=== PATIENT | female | born 1980 | race Caucasian/White ===

== ENCOUNTER → 2017-11-01 | Outpatient (CLI) | payer OTHER ==
[~2017-11-01] MED LIST: COLA100C OR; METH-703 PO; OXYC-360 PO; PREN0.01 PO
== END ==
LOC: HPND 09:26
PROVIDERS: ATTEND Obstetrics & Gynecology
DX: O09.521 Supervision of elderly multigravida, first trimester (principal); O99.111 Other diseases of the blood and blood-forming organs and certain disorders involving the immune mechanism complicating pregnancy, first trimester; D69.6 Thrombocytopenia, unspecified
CPT/HCPCS: 36415; 76813

== ENCOUNTER → 2017-12-27 | Outpatient (CLI) | payer OTHER | LOC: HPND 08:30 | PROVIDERS: ATTEND Obstetrics & Gynecology | DX: O09.522 Supervision of elderly multigravida, second trimester (principal); O34.211 Maternal care for low transverse scar from previous cesarean delivery; D69.6 Thrombocytopenia, unspecified | CPT/HCPCS: 76811 ==

== ENCOUNTER 2018-05-04 07:30 | Inpatient (IN) | payer OTHER ==
[~2018-05-04] VITALS: Ht 167.6 cm; Wt 78.0 kg
--- NOTE | 2018-05-06 16:23 | MH ---
cc: Walter Velazquez MD DATE OF ADMISSION: 05/07/2018 ADMITTING DIAGNOSIS: 1. Term . 2. Previous section. 3. Advanced maternal age 38. 4. History of ITP. HISTORY OF PRESENT ILLNESS: A 38-year-old white female, para on 08/04/2017, EDC of 05/11/2018, is now admitted for repeat section. PAST MEDICAL HISTORY/PAST SURGICAL HISTORY: Third molars. MEDICATIONS: Vitamins. ALLERGIES: NONE. TRANSFUSIONS: None. MEDICAL ILLNESS: History of ITP with the previous and this 1, platelet counts have been stable. OB HISTORY: Term delivery vaginal 2010, 2014 for postdates with macrosomia. SOCIAL HISTORY: She is . She is a CUSTOMER SERVICE REPRESENTATIVE TELLER. Alcohol, tobacco and drugs are none. FAMILY HISTORY: Noncontributory. PHYSICAL EXAMINATION: GENERAL: A well-nourished, well-developed white female. VITAL SIGNS: Stable: HEENT: Normal. CHEST: Clear. HEART: Regular rate. BREASTS: Symmetrical. ABDOMEN: Gravid. EFW of 3600 grams. CERVIX: Closed. Ovaries normal. LABORATORY DATA: Ultrasounds have shown a vertex presentation, posterior placenta. GBS is positive. ASSESSMENT: As above, she is now admitted for repeat section. PLAN: While in the office explained the procedures, the risks, benefits and complications. The patient would like to proceed. Walter Velazquez MD JAW/TL , 03:56 PM , 04:21 PM
[2018-05-07] VITALS (11 sets, daily range): BP systolic 107–126; BP diastolic 60–91; PULSE 66–94; RESP 15–18; TEMP 97.6–97.9; O2SAT 96–99
[2018-05-07] MEDS ORDERED: CITRIC ACID-SODIUM CITRATE LIQ 30 ML UDC PO SCH (06:00)
[2018-05-07] MEDS ORDERED: LACTATED RINGER'S 1000 ML IV ONE (06:00)
[2018-05-07] MEDS ORDERED: ceFAZolin 2 GM PREMIX 50 ML IV SCH (06:00)
[2018-05-07] MEDS ORDERED: LACTATED RINGER'S 1000 ML IV SCH (06:00)
[2018-05-07] MEDS ORDERED: FERR325T18 PO (06:07)
[2018-05-07 06:46] LABS: AUTOMATED NEUTROPHIL # 7.7 TH/MM3 (1.8-7.7); BASOPHIL % 0.3 % (0.0-2.0); EOSINOPHIL # 0.1 TH/MM3 (0-0.4); EOSINOPHIL % 1.3 % (0.0-4.0); HEMATOCRIT 35.7 % (35.0-46.0); HEMOGLOBIN 12.7 GM/DL (11.6-15.3); LYMPH % 23.4 % (9.0-44.0); LYMPHOCYTE # 2.7 TH/MM3 (1.0-4.8); MEAN CELL VOLUME 91.1 FL (80.0-100.0); MEAN CORPUSCULAR HEMOGLOBIN 32.4 PG (27.0-34.0); MEAN CORPUSCULAR HGB CONC 35.6 % (32.0-36.0); MEAN PLATELET VOLUME 9.4 FL (7.0-11.0); MONOCYTE # 0.8 TH/MM3 (0-0.9); PLATELET COUNT 143 TH/MM3 (150-450); RED BLOOD COUNT 3.92 MIL/MM3 (4.00-5.30); WHITE BLOOD COUNT 11.3 TH/MM3 (4.0-11.0)
[2018-05-07] MEDS ORDERED: MORPHINE SULFATE PF 5 MG/10 ML VIAL ONE (07:20)
[2018-05-07] MEDS ORDERED: ACETAMINOPHEN 1000 MG/100 ML 100 ML IV ONE ×2 (07:20→08:59)
[2018-05-07 07:28] LABS: BILIRUBIN, URINE NEG (NEG); BLOOD, URINE NEG (NEG); GLUCOSE,URINE NEG (NEG); KETONE, URINE NEG (NEG); MUCUS URINE FEW /lpf (OCC); NITRITE,URINE NEG (NEG); SQUAMOUS EPITHELIAL CELL URINE 1 /hpf (0-5); URINE COLOR YELLOW (YELLW/STRAW); URINE LEUKOCYTE ESTERASE TRACE (NEG)
[2018-05-07] MEDS ORDERED: ZOLPIDEM TARTRATE 5 MG TAB PO PRN (07:30)
[2018-05-07] MEDS ORDERED: oxyCODONE/ACETAMINOPHEN 5 MG/325 MG TAB PO PRN ×2 (07:30)
[2018-05-07] MEDS ORDERED: DOCUSATE SODIUM 50 MG/SENNA 8.6 MG TAB PO PRN (07:30)
[2018-05-07] MEDS ORDERED: ACETAMINOPHEN 1000 MG/100 ML VIAL IV SCH (07:30)
[2018-05-07] MEDS ORDERED: SIMETHICONE 80 MG CHEWABLE TAB PO PRN (07:30)
[2018-05-07] MEDS ORDERED: OXYTOCIN 30 UNITS-500ML PREMIX 500 ML IV ONE (08:00)
--- NOTE | 2018-05-07 08:55 | MP ---
cc: Walter Velazquez MD DATE OF OPERATION: 05/07/2018 PREOPERATIVE DIAGNOSES: 1. Term . 2. Previous section. 3. Advanced maternal age. POSTOPERATIVE DIAGNOSES: 1. Term . 2. Previous . 3. Advanced maternal age. 4. Delivered. PROCEDURE PERFORMED: Repeat low transverse section. ANESTHESIA: Spinal. SURGEON: Walter Velazquez MD STAPLER HAND: Audrey Valdes. ESTIMATED BLOOD LOSS: About 700 mL. FLUIDS: 1 liter of crystalloid. OBJECTIVE FINDINGS: Following induction of adequate spinal anesthesia, the patient was prepped and draped supine on the operating table in the left lateral tilt position in the usual sterile fashion with the bladder being drained via Newman catheterization. The abdomen was opened through a Pfannenstiel incision using a knife cut down through the skin to the fascia. The fascia was opened transversely, stripped from the muscles. The rectus muscle split in the midline and the peritoneum opened sharply without incident. The bladder flap was taken down sharply, retracted inferiorly with the Maeve blade. The lower uterine segment was incised transversely with a knife, extended with blunt dissection. Membranes were ruptured revealing clear fluid. Baby was in ROP position, head rotated, the vacuum applied to the occiput and used to gently lift the head through the abdominal wound. The mouth was suctioned. The cord clamped and cut and the baby passed to the awaiting team. A viable vigorous male, Apgars 8 and 9, weight 7 pounds 8 ounces. Cord blood collected for preservation. Cord segment for preservation and then cord blood for typing. The placenta delivered manually. Uterine cavity cleaned with laps. Uterus exteriorized and cavity wiped clean with laps. The uterine wound was then closed in 2 layers with a running suture, first with a running locking stitch of 0 Vicryl, second with a running imbricating stitch of 0 Vicryl. Posterior inspection revealed normal tubes, ovaries and uterus. The uterus was placed in the peritoneal cavity, irrigation performed, no bleeding was evident and the bladder flap was closed with a running stitch of 3-0 Vicryl. All laps and retractors were removed. Counts were correct. The anterior peritoneum closed with a running stitch of 2-0 Vicryl. The fascia with a running locking stitch of 0 Vicryl corner to midline and tied, subcutaneous running 3-0 Vicryl and the skin with a running subcuticular 3-0 Monocryl. Dermabond applied. All counts were correct and the patient was awakened and taken to the recovery room in good condition. MD HATTIE Lisa/FAZAL , 08:22 AM , 08:54 AM
[2018-05-07] MEDS ORDERED: OXYTOCIN 30 UNITS-500ML PREMIX 500 ML ONE (08:59)
[2018-05-07] MEDS ORDERED: diphenhydrAMINE HCL 50 MG/ML VIAL ONE (08:59)
[2018-05-07] MEDS ORDERED: MEASLES, MUMPS, RUBELLA VACCINE 0.5 ML VIAL SQ ONE (09:00)
[2018-05-07] MEDS: ACETAMINOPHEN 1000 MG/100 ML 100 ML IV SCH ×4 (09:00→23:56)
[2018-05-07] MEDS ORDERED: KETOROLAC TROMETHAMINE 30 MG/ML (IVP) VIAL ONE (10:01)
[2018-05-07] MEDS ORDERED: EPIDURAL-DIPHENHYDRAMINE HCL 50 MG CAP PO PRN (11:15)
[2018-05-07] MEDS ORDERED: EPIDURAL-DIPHENHYDRAMINE HCL 50 MG/ML VIAL IV PUSH PRN (11:15)
[2018-05-07] MEDS ORDERED: EPIDURAL-NO SYSTEMIC NARCOTICS PRN (11:15)
[2018-05-07] MEDS ORDERED: EPIDURAL-NALOXONE HCL 0.4 MG/ML AMP IV PUSH PRN (11:15)
[2018-05-07] MEDS ORDERED: EPIDURAL-DO NOT ADMINISTER ANTICOAGULANTS PRN (11:15)
[2018-05-07] MEDS ORDERED: LACTATED RINGER'S 1000 ML INJ 1,000 ML IV SCH (13:04)
[2018-05-07] MEDS: KETOROLAC TROMETHAMINE 30 MG/ML (IVP) VIAL IV PUSH PRN ×2 (15:55→22:12)
[2018-05-07] MEDS: ONDANSETRON ODT 4 MG TAB PO PRN ×2 (16:00→22:12)
[2018-05-07] MEDS ORDERED: OXYTOCIN 30 UNITS-500ML PREMIX 500 ML IV PRN (18:15)
[2018-05-08] MEDS: IBUPROFEN 600 MG TAB PO PRN ×3 (04:27→16:00)
[2018-05-08 05:13] LABS: AUTOMATED NEUTROPHIL # 10.1 TH/MM3 (1.8-7.7); BASOPHIL % 0.2 % (0.0-2.0); EOSINOPHIL # 0.1 TH/MM3 (0-0.4); EOSINOPHIL % 0.4 % (0.0-4.0); HEMATOCRIT 30.7 % (35.0-46.0); HEMOGLOBIN 10.4 GM/DL (11.6-15.3); LYMPH % 17.2 % (9.0-44.0); LYMPHOCYTE # 2.3 TH/MM3 (1.0-4.8); MEAN CELL VOLUME 94.2 FL (80.0-100.0); MEAN CORPUSCULAR HEMOGLOBIN 32.1 PG (27.0-34.0); MEAN CORPUSCULAR HGB CONC 34.1 % (32.0-36.0); MEAN PLATELET VOLUME 9.3 FL (7.0-11.0); MONO % 6.3 % (0.0-8.0); MONOCYTE # 0.8 TH/MM3 (0-0.9); NEUT % 75.9 % (16.0-70.0); PLATELET COUNT 127 TH/MM3 (150-450); RED BLOOD COUNT 3.26 MIL/MM3 (4.00-5.30); RED CELL DISTRIBUTION WIDTH 12.9 % (11.6-17.2); WHITE BLOOD COUNT 13.3 TH/MM3 (4.0-11.0)
[2018-05-08 05:19] LABS: BICARBONATE 25.8 MEQ/L (21.0-32.0); CALCIUM 8.4 MG/DL (8.5-10.1); CREATININE 0.64 MG/DL (0.50-1.00)
[2018-05-08 08:00] VITALS: BP 105/59; PULSE 67; RESP 18; TEMP 97.9
[2018-05-08] MEDS ORDERED: PERC5TAB12 PO (11:51)
[2018-05-09] MEDS ORDERED: DIPHTH/TETANUS/ACEL PERTUSSIS (BOOSTER) 0.5 ML VIAL/PFS IM ONE (09:00)
== END 2018-05-08 17:39 | disposition home or self-care (01) | DRG 765 ==
LOC: H2EB 05-07 05:49 → H1EA 05-07 10:31
PROVIDERS: ADMIT Obstetrics & Gynecology; ATTEND Obstetrics & Gynecology
PROC: 10D00Z1 Extraction of Products of Conception, Low, Open Approach (ICD-10-PCS; principal; 2018-05-07)
DX: O34.211 Maternal care for low transverse scar from previous cesarean delivery (principal); O99.12 Other diseases of the blood and blood-forming organs and certain disorders involving the immune mechanism complicating childbirth; D69.3 Immune thrombocytopenic purpura; Z37.0 Single live birth; Z3A.39 39 weeks gestation of pregnancy
CPT/HCPCS: 59025; 80048; 80307; 81001; 85025; 86850; 86900; 86901; 88305; J0131; J0690; J1200; J1885; J2274; J2590; J7120; Q0163